=== PATIENT | male | born 1990 | race Caucasian/White ===

== ENCOUNTER 2025-04-24 00:35 | Emergency (ER) | payer OTHER, SELFPAY ==
[2025-04-24] VITALS (7 sets, daily range): BP systolic 106–132; BP diastolic 64–79; BMI 29.1
[2025-04-24 01:11] LABS: Hematocrit 39.5 % (39.0-52.0); Hemoglobin 13.7 g/dL (13.0-18.0); Mean Corp Hgb Conc. 34.7 g/dL (33.0-37.0); Mean Corpuscular Volume 94.3 fL (80.0-94.0); Nucleated Red Blood Cells % 0 % (-); Platelet Count 167 10^3/uL (130-400); Red Cell Dist. Width 12.1 % (11.5-14.5)
[2025-04-24 01:25] LABS: ALT (SGPT) 52 U/L (0-50); AST (SGOT) 28 U/L (17-59); Albumin 4.3 g/dl (3.5-5.0); Alkaline Phosphatase 40 U/L (38-126); Blood Urea Nitrogen 27 mg/dl (9-20); Calcium 9.0 mg/dl (8.4-10.2); Carbon Dioxide 32 mmol/L (22-30); Chloride 103 mmol/L (98-107); Estimated Creatinine Clearance 103 ml/min; Glucose 120 mg/dl (70-99); Potassium 3.7 mmol/L (3.5-5.1); Sodium 141 mmol/L (135-145); Total Protein 7.0 g/dl (6.3-8.2); eGFR > 60.00
[2025-04-24 01:38] LABS: Troponin I < 0.012 ng/ml
[2025-04-24 05:32] LABS: Troponin I < 0.012 ng/ml
--- NOTE | 2025-04-24 06:16 | ED.GENMED ---
History of Present Illness
General
Chief Complaint: Chest Pain
Source: patient
Exam Limitations: none
Time Seen by Provider: 04/24/25 06:08
Nursing documentation reviewed up to this point in time: agreed with
History of Present Illness
History of Present Illness:
Note:
CHIEF COMPLAINT(S)
Chest pain and fainting episode.
HISTORY OF PRESENT ILLNESS
The patient is a 34-year-old male who was sleeping and awoke to severe chest pain. He described the pain as initially mild, feeling like 'heartburn,' but it progressively worsened, becoming 'super, super tight' and causing significant discomfort.
The episode resulted in the patient kneeling by his bed due to the intensity of the sensation. He experienced a fainting episode, which he described as feeling weaker before 'passing out'. The chest pain subsided in intensity post-event, but he
still felt unusual. He reported consuming a slice of pizza and some other light foods the previous day. He noted a sensation of fullness which led to the episode, suggesting a possible reflux or gas-related issue.
EXTERNAL RECORDS REVIEWED
The bloodwork and EKG conducted during this visit were reported to be normal.
REVIEW OF SYSTEMS
- Cardiovascular: Reports severe chest pain that progressed to fainting.
- Gastrointestinal: Described as having sensations similar to heartburn; possibility of reflux suggested.
PHYSICAL EXAM
General: Alert, no acute distress.
Skin: Warm, dry.
Head: Normocephalic, atraumatic.
Neck: Supple, trachea midline.
Eye Ears, nose, mouth and throat: Oral mucosa moist.
Cardiovascular: Normal peripheral perfusion, No edema. S1/2, no murmurs
Respiratory: Respirations are non-labored.
Gastrointestinal: Abdomen nondistended.
Back: Normal range of motion, Normal alignment.
Musculoskeletal: Normal range of motion, normal strength.
Neurological: Alert and oriented to person, place, time, and situation, No focal neurological deficit observed.
Psychiatric: Cooperative, appropriate mood & affect.
PLAN
The patient was reassured and advised to follow up with a primary care doctor. It was determined that the likely cause of the episode was a vasovagal reaction potentially due to reflux or gas discomfort irritating the vagal nerve. He was prescribed
a proton pump inhibitor to manage potential reflux. The patient was advised to return if chest pain recurred or if his condition worsened.
DIFFERENTIAL DIAGNOSIS
The Differential Diagnosis includes, in no particular order and is not limited to:
1. Myocardial infarction
2. Vasovagal syncope
3. Gastroesophageal reflux disease
4. Cardiac arrhythmia
5. Aortic dissection
6. Pulmonary embolism
7. Pericarditis
8. Peptic ulcer disease
9. Costochondritis
10. Anxiety or panic attack
EKG
My independent EKG interpretation is:
- Performed at 4:50 a.m. on 08/25/2024
- Rhythm: Normal sinus rhythm
- Heart rate: 53 bpm (sinus bradycardia)
- HI interval: Normal
- QRS duration: Normal
- QT interval: Normal
Disposition:
SUMMARY OF ENCOUNTER
The patient is a 34-year-old male who presented to the emergency department with severe chest pain and a fainting episode. The chest pain, initially mild and heartburn-like, worsened significantly, leading to a fainting spell. The patient awoke with
the sensation of fullness, suggesting possible reflux or gas-related discomfort. The bloodwork and EKG conducted during the visit were normal. The patient was assessed for potential causes including myocardial infarction, pulmonary embolism, and
aortic dissection, but these were considered unlikely. The likely cause of the episode was determined to be a vasovagal reaction due to reflux or gas discomfort irritating the vagal nerve.
DISPOSITION
Discharge.
ASSESSMENT
The patient experienced chest pain and a fainting episode likely due to a vasovagal reaction from gastroesophageal reflux disease.
PLAN
The patient was advised to follow up with a primary care doctor and prescribed a proton pump inhibitor for potential reflux management. He was instructed to return if chest pain recurred or if his condition worsened.
INDEPENDENT REVIEW OF LABS AND INTERPRETATION OF TESTS
My independent EKG interpretation is:
- Rhythm: Normal sinus rhythm
- Heart rate: 53 bpm (sinus bradycardia)
- HI interval: Normal
- QRS duration: Normal
- QT interval: Normal
MEDICATION RECONCILIATION
Protonix (pantoprazole) prescribed for management of gastroesophageal reflux.
MEDICAL DECISION MAKING
- Number and Complexity of Problems Addressed: Chronic conditions affecting care; Differential Diagnosis includes: Myocardial infarction, Vasovagal syncope, Gastroesophageal reflux disease, Cardiac arrhythmia, Aortic dissection, Pulmonary embolism,
Pericarditis, Peptic ulcer disease, Costochondritis, Anxiety or panic attack.
- Data:
Category 1
External records reviewed: Normal bloodwork and EKG.
Category 2
My independent interpretation of EKG: Normal sinus rhythm with sinus bradycardia.
- Risk:
Prescription medication was prescribed: Protonix (pantoprazole).
Consideration of Admission/Observation: Escalation of care including admission/observation was considered given the complexity and risk of the patients presenting complaint, exam findings, and/or their underlying comorbidities. However, ultimately I
feel the patient is safe for outpatient management with close follow-up. Reasoning: Work-up reassuring, does not reveal any acute life/organ threatening processes, patients symptoms well controlled upon reevaluation, reexamination is reassuring,
vitals are stable, patient agreeable with discharge, reliable for follow-up.
DIAGNOSIS
Chest pain, suspected vasovagal syncope due to gastroesophageal reflux disease (ICD-10: R07.9, R55, K21.9).
Phy Exam
Physical Exam
Physical Exam:
.
Scores
Heart Score for Chest Pain Patients
STEMI patient?: No
History: Slightly or Non-Suspicious
ECG: Normal
Age: </= 45 years
Risk Factors: No Risk Factors
Troponin: </= Normal Limit
Heart Score for Chest Pain Patients: 0
Heart Score Risk: 2.5% MACE over next 6 weeks
Course
Orders/Labs/Results
Orders:
Orders
04/24/25 00:39
ECG [Electrocardiogram (*1)] Urgent
Reason for Study: Chest Pain
EKG- Treatment ONCE
04/24/25 00:59
Complete Blood Count/With Diff Urgent
Comprehensive Metabolic Panel Urgent
Troponin I Urgent
04/24/25 04:43
Electrocardiogram (*1) Urgent
Reason for Study: Chest Pain
EKG- Treatment ONCE
04/24/25 04:46
Troponin I Urgent
Abnormal Lab Results
04/24/25
00:59
RBC 4.19 L 10^6/uL
(4.70-6.10)
MCV 94.3 H fL
(80.0-94.0)
MCH 32.7 H pg
(27.0-31.0)
Carbon Dioxide 32 H mmol/L
(22-30)
BUN 27 H mg/dl
(9-20)
Glucose 120 H mg/dl
(70-99)
ALT 52 H U/L
(0-50)
04/24/25 00:59
04/24/25 00:59
Vital Signs
Initial and Last Documented VS:
Initial Vital Signs
Temp Pulse Resp BP Pulse Ox
97.8 F 65 18 115/78 100
04/24/25 00:44 04/24/25 00:44 04/24/25 00:44 04/24/25 00:44 04/24/25 00:44
Last Documented Vital Signs
Temp Pulse Resp BP Pulse Ox
97.8 F 56 16 106/70 97
04/24/25 00:44 04/24/25 05:15 04/24/25 04:15 04/24/25 05:00 04/24/25 06:18
*Pulse Oximetry
SaO2: 97
Oxygen Mode of Delivery: Room air
Patient hypoxic: no
*Critical Care Note
Total Time (30-74mins, 75-104mins- exclusive of procedures): Not Applicable
ED Attending Note
-
Portions of this chart may have been created with voice recognition software.� Occasional wrong word or��sound alike� substitutions may have occurred due to the inherent limitations of voice recognition software.
Discharge Plan
Departure
Patient Disposition: Home (Routine Discharge)
Date of Disposition: 04/24/25
Time of Disposition: 06:30
Patient with high blood pressure during this ER visit?: No
Condition: Good
Discharge Problem:
Syncope, Chest pain
Instructions: Acid Reflux and GERD in Adults (DC), Syncope (fainting) (DC), Chest Pain PCP Follow Up
Prescriptions:
New
pantoprazole [Protonix] 40 mg tablet,delayed release (DR/EC)
40 mg PO DAILY Qty: 30 0RF
Referrals:
UNKNOWN - PT DOES,NOT KNOW [Family Provider]
Activity Restrictions/Additional Instructions:
Follow up with primary care in 3-5 days. Return for any concerns.
Interventions
Interventions:
*Risk Screen - Suicide Last Done: 04/24/25 00:44
*General Assessment Last Done: 04/24/25 00:44
*Neglect/Abuse Screening Last Done: 04/24/25 00:44
*ED- Fall Risk Assessment Last Done: 04/24/25 01:19
*ED COVID-19 Vaccine History Last Done: 04/24/25 00:52
*ED Influenza Vaccine History Last Done: 04/24/25 00:52
ED- Cardiac Assessment Last Done: 04/24/25 01:07
Discharge Date and Time
Print Language: SAUDI ARABIAN
== END 2025-04-24 06:43 | disposition home or self-care (01) ==
LOC: EMR 00:35
PROVIDERS: Emergency Medicine; Physician Assistant; EMERGENCY PHYSICIAN Emergency Medicine
DX: R55 Syncope and collapse (principal); R07.89 Other chest pain; F32.A Depression, unspecified
CPT/HCPCS: 99284; 80053; 84484; 85025; 93005